=== PATIENT | male | born 1980 | race American Indian/Alaskan Native ===

== ENCOUNTER 2018-01-10 16:04 | Emergency (ER) | payer MEDICAID ==
--- NOTE | 2018-01-10 16:16 | ED PDOC ---
HPI: Psych/Substance Abuse Time Seen by Provider: 01/10/18 16:15 Chief Complaint (Nursing): Psychiatric Evaluation Chief Complaint (Provider): crisis eval History Per: Patient, EMS Additional Complaint(s): 37 y/o male presents to ED for crisis eval. Patient received routine visit today from [facility] and counselor recommended that he come to ED. Patient told mobile crisis counselor that he was feeling suicidal a few weeks ago but not today. Counselor advised ED evaluation. Upon arrival to emergency department patient denies suicidal or homicidal ideation. He states these thoughts have subsided since he was started on intake the injections about 3 weeks ago. Patient's mother is at bedside as well. Patient states he is compliant with all meds. Past Medical History Reviewed: Historical Data, Nursing Documentation, Vital Signs - Medical History PMH: Bipolar Disorder Other PMH: schizoaffective - Family History Family History: States: No Known Family Hx - Living Arrangements Living Arrangements: Alone - Social History Current smoker - smoking cessation education provided: Yes Alcohol: None Drugs: Denies - Home Medications Home Medications: Ambulatory Orders Medication Instructions Recorded Divalproex [Depakote ER(ONCE 500 mg PO QID 01/21/16 DAILY)] Klonopin 1 tab PO DAILY 01/21/16 Risperdal 1 vial IM Q14D 01/21/16 Bacitracin 1 gm TOP BID #1 tube 05/29/16 Benztropine [Cogentin] 1 tab PO DAILY 05/29/16 Benztropine [Cogentin] 1 tab PO DAILY 05/29/16 Cephalexin [cephalexin] 1,000 mg PO BID #28 cap 05/29/16 Naproxen [Naprosyn] 500 mg PO BID #20 tab 05/29/16 - Allergies Allergies/Adverse Reactions: Allergies Allergy/AdvReac Type Severity Reaction Status Date / Time No Known Allergies Allergy Verified 01/10/18 16:13 Review of Systems ROS Statement: Except As Marked, All Systems Reviewed And Found Negative Psych: Positive for: Suicidal ideation Physical Exam - Reviewed Nursing Documentation Reviewed: Yes Vital Signs Reviewed: Yes - Physical Exam Appears: Positive for: Well, Non-toxic, No Acute Distress Skin: Negative for: Rash Eye Exam: Positive for: Normal appearance Cardiovascular/Chest: Positive for: Regular Rate, Rhythm Respiratory: Positive for: Normal Breath Sounds Neurologic/Psych: Positive for: Alert, Oriented - ECG O2 Sat by Pulse Oximetry: 99 Pulse Ox Interpretation: Normal Medical Decision Making Medical Decision Makin37 y/o M here for crisis eval Plan: Crisis consult 1:1 bedside observation As per crisis counselor and psychiatrist [employer], Dr. Broderick, patient does not meet criteria for admission and is stable for discharge. Disposition - Clinical Impression Clinical Impression: Schizoaffective disorder - Patient ED Disposition Is Patient to be Admitted: No Counseled Patient/Family Regarding: Need For Followup - Disposition Referrals: [facility] [Outside] Disposition: Routine/Home Disposition Time: 17:40 Condition: STABLE Additional Instructions: Follow up as directed. Instructions: Schizoaffective Disorder (DC) Forms: [employer] (Vietnamese)
[2018-01-10 16:18] VITALS: BP 119/67; PULSE 69; RESP 16; TEMP 98.4; O2SAT 99; BMI 28.8
== END 2018-01-10 17:43 | disposition home or self-care (01) ==
LOC: H.ER 16:04
DX: F25.9 Schizoaffective disorder, unspecified (principal); Z86.59 Personal history of other mental and behavioral disorders; Z00.8 Encounter for other general examination; F17.200 Nicotine dependence, unspecified, uncomplicated; R45.851 Suicidal ideations

== ENCOUNTER 2018-07-25 11:23 | Emergency (ER) | payer MEDICAID ==
[2018-07-25 11:23] VITALS: BMI 28.8
[2018-07-25 11:28] VITALS: BP 122/68; PULSE 59; RESP 20; TEMP 97.9; O2SAT 100
--- NOTE | 2018-07-25 12:38 | ED PDOC ---
HPI: Psych/Substance Abuse Time Seen by Provider: 07/25/18 12:18 Chief Complaint (Nursing): Psychiatric Evaluation Chief Complaint (Provider): psychiatric evaluation History Per: Patient, Family (mother at bedside) History/Exam Limitations: no limitations Onset/Duration Of Symptoms: Hrs (today) Additional Complaint(s): Symone Puga, a 38 year old male with past medical history of bipolar disorder, presents to the ED with his mother and shoe parts caser for a psychiatric evaluation. Patient states he was in a session earlier today and was expressing frustration that the heat in his apartment was turned off and his shoe parts caser took it as he wanted to harm his landlord. Per protocol, he had to be evaluated by a crisis team. He denies suicidal or homicidal ideations, A/V hallucinations and has no physical complaints. No further medical complaints. PMD: Henri Henson Past Medical History Reviewed: Historical Data, Nursing Documentation, Vital Signs Vital Signs: Last Vital Signs Temp 97.9 F 07/25/18 11:27 Pulse 59 L 07/25/18 11:27 Resp 20 07/25/18 11:27 BP 122/68 07/25/18 11:27 Pulse Ox 100 07/25/18 11:27 - Medical History PMH: Bipolar Disorder (compliant with Depakote and Klonopin) - Surgical History Surgical History: No Surg Hx - Family History Family History: States: Unknown Family Hx - Social History Current smoker - smoking cessation education provided: Yes (3 cigarettes per day) Alcohol: Social Drugs: Cannabis - Home Medications Home Medications: Ambulatory Orders Medication Instructions Recorded Divalproex [Depakote ER(ONCE 500 mg PO QID 01/21/16 DAILY)] Klonopin 1 tab PO DAILY 01/21/16 Risperdal 1 vial IM Q14D 01/21/16 Benztropine [Cogentin] 1 tab PO DAILY 05/29/16 Cephalexin [cephalexin] 1,000 mg PO BID #28 cap 05/29/16 Naproxen [Naprosyn] 500 mg PO BID #20 tab 05/29/16 RX: Bacitracin 1 gm TOP BID #1 tube 05/29/16 RX: Benztropine [Cogentin] 1 tab PO DAILY 05/29/16 - Allergies Allergies/Adverse Reactions: Allergies Allergy/AdvReac Type Severity Reaction Status Date / Time No Known Allergies Allergy Verified 07/25/18 11:41 Review of Systems ROS Statement: Except As Marked, All Systems Reviewed And Found Negative Constitutional: Negative for: Other (physical complaints) Psych: Negative for: Suicidal ideation, Other (homicidal ideation, hallucinations) Physical Exam - Reviewed Nursing Documentation Reviewed: Yes Vital Signs Reviewed: Yes - Physical Exam Comments: GENERAL APPEARANCE: Patient is awake, alert, oriented x 3, in no acute distress, calm and cooperative. SKIN: Warm, dry; (-) cyanosis ENMT: Mucous membranes moist. Airway patent: (-) stridor. NECK: Supple, FROM HEART AND CARDIOVASCULAR: (-) irregularity CHEST AND RESPIRATORY: (-) rales, (-) rhonchi, (-) wheezes; breath sounds equal. Respirations even and nonlabored. ABDOMEN: Soft, (-) distention, (-) tenderness, (-) guarding. NEURO AND PSYCH: Mental status as above. (-) facial asymmetry. Gait: steady. Speech: clear. - ECG O2 Sat by Pulse Oximetry: 100 (RA) Pulse Ox Interpretation: Normal Medical Decision Making Medical Decision Making: Time: 12:15 Initial Impression: psychiatric evaluation Initial Plan: --Crisis evaluation --Re-evaluation 1310 Per crisis evaluation, patient to be discharged with the diagnosis of Bipolar Disorder of Dr Burton. On exam, patient remains AAOx3, in no acute distress. Lungs clear to auscultation, cardiac RRR, repeat neuro exam shows no focal findings. Vitals stable. Lab/Diagnostic results d/w the patient in great detail. Diagnosis of bipolar disorder d/w the patient. Based on history, exam and diagnostic results, plan will be for outpatient follow up as directed by crisis. Patient instructed to follow-up with pmd / referral provided / the clinic in 1- 2 days without fail. Return to the emergency room at any time for any new or worsening symptoms. Patient states he fully agrees with and understands discharge instructions. States that he agrees with the plan and disposition. Verbalized and repeated discharge instructions and plan. I have given the patient opportunity to ask any additional questions. Scribe Attestation: Documented by Kelly Ayala, acting as a scribe for Isabel Hartley PA-C. Provider Scribe Attestation: All medical record entries made by the Scribe were at my direction and personally dictated by me. I have reviewed the chart and agree that the record accurately reflects my personal performance of the history, physical exam, medical decision making, and the department course for this patient. I have also personally directed, reviewed, and agree with the discharge instructions and disposition. Disposition - Clinical Impression Clinical Impression: Bipolar disorder - Patient ED Disposition Is Patient to be Admitted: No Counseled Patient/Family Regarding: Studies Performed, Diagnosis, Need For Foll owup - Disposition Referrals: Henri Henson, MAG[facility], [employer] [Family Provider] - Disposition: Routine/Home Disposition Time: 13:10 Condition: STABLE Additional Instructions: The emergency medical care you received today was directed at your acute symptoms. If you were prescribed any medication, please fill it and take as directed. It may take several days for your symptoms to resolve. Return to the Emergency Department if your symptoms worsen, do not improve, or if you have any other problems. Please contact your doctor in 2 days for re-evaluation and follow up / or call one of the physicians/clinics you have been referred to that are listed on the Patient Visit Information form that is included in your discharge packet. Bring any paperwork you were given at discharge with you along with any medications you are taking to your follow up visit. Our treatment cannot replace ongoing medical care by a primary care provider (PCP) outside of the emergency department. Instructions: Bipolar Disorder Forms: [employer] ([place] Korean) Print Language: TRISTANIAN - POA Present On Arrival: None
== END 2018-07-25 13:29 | disposition home or self-care (01) ==
LOC: H.ER 11:23
DX: F31.9 Bipolar disorder, unspecified (principal)